=== PATIENT | female | born 1995 | race African-American/Black ===

== ENCOUNTER 2017-06-18 09:47 | Emergency (ER) | payer SELFPAY ==
[2017-06-18 10:01] VITALS: BP 118/67
--- NOTE | 2017-06-18 10:37 | ER Document Report ---
ED Skin Rash/Insect Bite/Abscs - General Chief Complaint: Cyst Stated Complaint: SKIN PROBLEM Time Seen by Provider: 06/18/17 10:21 Mode of Arrival: Ambulatory Information source: Patient Notes: 22-year-old female presents to ED complaining of cyst in the left axilla. She states that it is been there for at least 2 weeks. She states that the pain has started over the last couple days radiating to her left shoulder. There is no redness no warmth no fluctuation. Patient denies any fevers chills or night sweats. Patient states she has had cyst in the right axilla before. TRAVEL OUTSIDE OF THE [place] IN LAST 30 DAYS: No - HPI Patient complains to provider of: Tender/swollen area Onset: Other - 2 weeks Onset/Duration: Gradual Quality of pain: Achy Severity: Moderate Pain Level: 3 Skin Character: Abscess Quality of rash: Painful Identify cause: No Exacerbated by: Movement Relieved by: Denies Similar symptoms previously: Yes Recently seen / treated by doctor: No - Related Data Allergies/Adverse Reactions: No Known Allergies Allergy (Verified 06/18/17 10:01) Past Medical History - General Information source: Patient - Social History Smoking Status: Never Smoker Cigarette use (# per day): No Chew tobacco use (# tins/day): No Smoking Education Provided: No Frequency of alcohol use: None Drug Abuse: None Occupation: [employer] Lives with: Family Family History: Hypertension. denies: Arthritis, CAD, COPD, CVA, DM, Hyperlipidemia, Malignancy, Thyroid Disfunction Patient has suicidal ideation: No Patient has homicidal ideation: No - Past Medical History Cardiac Medical History: Reports: None Pulmonary Medical History: Reports: None EENT Medical History: Reports: None Neurological Medical History: Reports: None Endocrine Medical History: Reports: None Renal/ Medical History: Reports: None Malignancy Medical History: Reports: None GI Medical History: Reports: None Musculoskeltal Medical History: Reports None Skin Medical History: Reports Hx Cellulitis Psychiatric Medical History: Reports: None Traumatic Medical History: Reports: None Infectious Medical History: Reports: None Surgical Hx: Negative Past Surgical History: Reports: None - Immunizations Immunizations up to date: Yes Hx Diphtheria, Pertussis, Tetanus Vaccination: Yes Review of Systems - Review of Systems Constitutional: No symptoms reported EENT: No symptoms reported Cardiovascular: No symptoms reported Respiratory: No symptoms reported Gastrointestinal: No symptoms reported Genitourinary: No symptoms reported Female Genitourinary: No symptoms reported Musculoskeletal: No symptoms reported Skin: Other - Painful swollen area to the left axilla Hematologic/Lymphatic: No symptoms reported Neurological/Psychological: No symptoms reported -: Yes All other systems reviewed and negative Physical Exam - Vital signs Vitals: Temp Pulse Resp BP Pulse Ox 99.3 F 111 H 16 118/67 100 06/18/17 09:55 06/18/17 09:55 06/18/17 09:55 06/18/17 09:55 06/18/17 09:55 Interpretation: Normal - General General appearance: Appears well, Alert - HEENT Head: Normocephalic, Atraumatic Eyes: Normal Pupils: PERRL - Respiratory Respiratory status: No respiratory distress Chest status: Nontender Breath sounds: Normal Chest palpation: Normal - Cardiovascular Rhythm: Regular Heart sounds: Normal auscultation Murmur: No - Abdominal Inspection: Normal Distension: No distension Bowel sounds: Normal Tenderness: Nontender Organomegaly: No organomegaly - Back Back: Normal, Nontender - Extremities General upper extremity: Normal inspection, Nontender, Normal color, Normal ROM , Normal temperature General lower extremity: Normal inspection, Nontender, Normal color, Normal ROM , Normal temperature, Normal weight bearing. No: Wally's sign - Neurological Neuro grossly intact: Yes Cognition: Normal Orientation: AAOx4 [place] Coma Scale Eye Opening: Spontaneous [place] Coma Scale Verbal: Oriented [place] Coma Scale Motor: Obeys Commands [place] Coma Scale Total: 15 Speech: Normal Motor strength normal: LUE, RUE, LLE, RLE Sensory: Normal - Psychological Associated symptoms: Normal affect, Normal mood - Skin Skin Temperature: Warm Skin Moisture: Dry Skin Color: Normal. negative: Erythema, Ecchymosis Location of irregularity: Extremities - Left axilla Irregularity with: Swelling, Tenderness. negative: Warmth, Thickening, Inflammation Course - Re-evaluation Re-evalutation: 06/18/17 11:[address] Duran who assisted me and doing ultrasounds of the area there is a very minimal abscess to the upper aspect of the axilla not big enough to I& D. Patient was placed on Septra and Keflex and instructed to follow-up for any increase in symptoms. - Vital Signs Vital signs: Temp Pulse Resp BP Pulse Ox 99.3 F 111 H 16 118/67 100 06/18/17 09:55 06/18/17 09:55 06/18/17 09:55 06/18/17 09:55 06/18/17 09:55 Discharge - Discharge Clinical Impression: Cellulitis of left axilla Condition: Stable Disposition: HOME, SELF-CARE Instructions: Family Physicians / Practices Additional Instructions: CELLULITIS: You have an infection of your skin and underlying soft tissues called cellulitis. This is due to bacteria, which can enter through any break in the skin, or even through an irritated hair follicle. Untreated, cellulitis will usually worsen. Antibiotics are required. Usually, warm packs or warm soaks, and elevation of the infected area are recommended. You should start getting better within 24 to 36 hours. Most infections respond quickly to the right medication. Follow-up care is important, however, to check for abscess (boil) formation, unsuspected foreign body, or resistant infection. If you develop fever, chills, or if the area of infection is becoming rapidly more swollen or painful, call the doctor at once. Epsom Salt Soaks Soak the wound area in a container of warm epsom salt water. If you can't get the wound area into a bucket or allison, use a folded towel soaked in the epsom salt solution and apply to the area. Use clean hot tap water (about the temperature of a very warm bath), mixing in about one (1) teaspoon for every pint of water. Two gallon --> 16 teaspoons Epsom Salts One gallon --> 8 teaspoons Epsom Salts Two quarts --> 4 teaspoons Epsom Salts One quart --> 2 teaspoons Epsom Salts Soak the wound for about 20 minutes while gently moving it around in the water. Repeat this four (4) times a day. TRIMETHOPRIM-SULFA: You have been given a prescription for trimethoprim-sulfa (TMS, Septra, Bactrim). This is a combination antibiotic of the sulfa class, often used for urinary tract infections, middle ear infections, bronchitis, shigella intestinal infection, and Pneumocystis pneumonia. TMS is usually well-tolerated. Occasional side effects include nausea and decreased appetite. Septra is not recommended for infants less than two months of age. Do not take this medication if you have experienced severe side effects or allergy to sulfa medicine. You should stop this medicine at once and contact your physician if you develop any rash, joint pain, shortness of breath, bruising, or jaundice ( yellow color in the skin), or if you develop any other new or unusual symptoms. Cephalexin The antibiotic you've been prescribed is a member of the cephalosporin class. This type of antibiotic covers a wide variety of infections, including those of the skin, lungs, and urinary tract. It's useful for staph infections. This antibiotic is slightly similar to the penicillin family. In rare cases , a person who is allergic to penicillin will also be allergic to this medication. If you have had a severe allergic reaction to penicillin, and have not taken this antibiotic since that time, notify your doctor. Antibiotics which cover many germs ("broad spectrum" antibiotics) are more likely to cause diarrhea or "yeast" infections. Women prone to vaginal yeast problems may suffer an attack after taking this antibiotic. In infants, oral thrush (white spots "stuck" on the cheek) or yeast diaper rash may result. See your doctor if these problems occur. Call at once if you develop itching, hives , shortness of breath, or lightheadedness. Please return to the ED or your primary doctor for any increase in size discomfort or any redness to the area. There is a very small abscess in the left axilla at this time not large enough to I&D. We will start you on antibiotics and if it increases in size discomfort or redness please return. FOLLOW-UP CARE: If you have been referred to a physician for follow-up care, call the physician s office for an appointment as you were instructed or within the next two days. If you experience worsening or a significant change in your symptoms, notify the physician immediately or return to the Emergency Department at any time for re-evaluation. Prescriptions: Cephalexin Monohydrate [Keflex 500 mg Capsule] 500 mg PO QID #20 capsule Fluconazole [Diflucan 100 mg Tablet] 100 mg PO ONCE PRN #1 tablet PRN Reason: Sulfamethoxazole/Trimethoprim [Bactrim Ds Tablet] 1 each PO BID #20 tablet Forms: Return to Work
== END 2017-06-18 10:50 | disposition home or self-care (01) ==
LOC: ER 09:47
DX: L03.112 Cellulitis of left axilla (principal); L72.8 Other follicular cysts of the skin and subcutaneous tissue
CPT/HCPCS: 99282

== ENCOUNTER 2017-12-08 19:54 | Emergency (ER) | payer SELFPAY ==
[2017-12-08 20:04] VITALS: BP 109/55
[2017-12-08] MEDS ORDERED: LIDOCAINE 1% INJ-PF (10 MG/ML) 30 ML SDV INJ ONE (20:38)
--- NOTE | 2017-12-08 20:38 | ER Document Report ---
ED Wound - General Chief Complaint: Laceration Stated Complaint: LEFT LEG LACERATION Time Seen by Provider: 12/08/17 20:31 Notes: Patient hit her leg on a corner of a picture frame. Laceration obtained. No other injuries. Patient states that she has had a tetanus shot in the last 5 years. Bleeding was controlled. No other injuries. TRAVEL OUTSIDE OF THE [place] IN LAST 30 DAYS: No - HPI Patient complains to provider of: Laceration - Related Data Allergies/Adverse Reactions: No Known Allergies Allergy (Verified 06/18/17 10:01) Past Medical History - General Information source: Patient - Social History Smoking Status: Current Every Day Smoker Cigarette use (# per day): Yes Chew tobacco use (# tins/day): No Frequency of alcohol use: Social Drug Abuse: None Family History: Hypertension. denies: Arthritis, CAD, COPD, CVA, DM, Hyperlipidemia, Malignancy, Thyroid Disfunction Patient has suicidal ideation: No Patient has homicidal ideation: No Renal/ Medical History: Denies: Hx Peritoneal Dialysis Skin Medical History: Reports Hx Cellulitis - Immunizations Immunizations up to date: Yes Hx Diphtheria, Pertussis, Tetanus Vaccination: Yes Review of Systems - Review of Systems Constitutional: No symptoms reported Cardiovascular: No symptoms reported Respiratory: No symptoms reported Musculoskeletal: See HPI, Other - Laceration left lower extremity Skin: Other - left lower extremely laceration Physical Exam - Vital signs Vitals: Temp Pulse Resp BP Pulse Ox 98.0 F 95 18 109/55 L 97 12/08/17 20:03 12/08/17 20:03 12/08/17 20:03 12/08/17 20:03 12/08/17 20:03 Interpretation: Normal - Respiratory Respiratory status: No respiratory distress Chest status: Nontender Breath sounds: Normal Chest palpation: Normal - Cardiovascular Rhythm: Regular Heart sounds: Normal auscultation Murmur: No - Extremities General upper extremity: Normal inspection, Nontender, Normal color, Normal ROM , Normal temperature General lower extremity: Normal inspection, Nontender, Normal color, Normal ROM , Normal temperature, Normal weight bearing, Other - Patient has a 3 cm linear laceration to the left lower extremity lateral aspect of the fibula area. No foreign bodies noted. Incision intact.. No: Wally's sign - Skin Skin Temperature: Warm Skin Moisture: Dry Skin Color: Normal Course - Re-evaluation Re-evalutation: 12/08/17 21:33 Laceration repaired. No complications. 12/08/17 21:33 Patient is having a little bit of pain in the leg as well as some nausea. I have ordered some ibuprofen and Zofran. Laceration repair. No complications. Will DC at this time. - Vital Signs Vital signs: Temp Pulse Resp BP Pulse Ox 98.0 F 95 18 109/55 L 97 12/08/17 20:03 12/08/17 20:03 12/08/17 20:03 12/08/17 20:03 12/08/17 20:03 Procedures - Laceration/Wound Repair Left Lower Leg Wound length (cm): 3 Wound's Depth, Shape: Linear Laceration pre-procedure: Shur-Clens applied Anesthetic type: 1% Lidocaine Volume Anesthetic (mLs): 10 Wound explored: Clean Wound Repaired With: Sutures Suture Size/Type: 4:0, Prolene Number of Sutures: 7 Post-procedure NV exam normal: Yes Complications: No Discharge - Discharge Clinical Impression: Leg laceration Qualifiers: Encounter type: initial encounter Laterality: left Qualified Code(s): S81.812A - Laceration without foreign body, left lower leg, initial encounter Disposition: HOME, SELF-CARE Instructions: Laceration Care ([facility]) Additional Instructions: Please return in 10-14 days for suture removal. If you notice any redness, swelling, worsening pain or other concerns please return immediately Forms: Return to Work
[2017-12-08] MEDS ORDERED: ONDANSETRON 4 MG TAB.RAPDIS PO ONE (21:33)
[2017-12-08] MEDS ORDERED: IBUPROFEN 800 MG TABLET PO ONE (21:33)
== END 2017-12-08 21:55 | disposition home or self-care (01) ==
LOC: ER 19:54
PROC: 0HQLXZZ Repair Left Lower Leg Skin, External Approach (ICD-10-PCS; principal; 2017-12-08)
DX: S81.812A Laceration without foreign body, left lower leg, initial encounter (principal); R11.0 Nausea; W22.09XA Striking against other stationary object, initial encounter; F17.210 Nicotine dependence, cigarettes, uncomplicated
CPT/HCPCS: 99282; 12002; S0119; J3490

== ENCOUNTER 2020-07-16 18:42 | Emergency (ER) | payer BC, OTHER ==
--- NOTE | 2020-07-16 19:08 | ER Document Report ---
ED Medical Screen (RME) - General Chief Complaint: Abscess Stated Complaint: ABSCESS Time Seen by Provider: 07/16/20 19:03 Mode of Arrival: Ambulatory Information source: Patient Notes: 25-year-old female presented to ED for a cyst on her right labia. She states she has had cyst in the past but never on her labia. She has had the cyst for about 4 days. States she has been using hot rags but it has not helped the area. She states her last menstrual cycle was the weekend of the . Denies any history of MRSA. Is alert oriented respirations regular nonlabored speaking in full sentences walks with even steady gait. I have greeted and performed a rapid initial assessment of this patient. A comprehensive ED assessment and evaluation of the patient, analysis of test results and completion of medical decision making process will be conducted by an additional ED providers. TRAVEL OUTSIDE OF THE [place] IN LAST 30 DAYS: No - Related Data Allergies/Adverse Reactions: No Known Allergies Allergy (Verified 06/18/17 10:01) Past Medical History - General Information source: Patient Last Menstrual Period: The week of July 04 - Social History Cigarette use (# per day): Yes - 1 black and mild a day Frequency of alcohol use: Occasional Drug Abuse: None Lives with: Family Family history: Reviewed & Not Pertinent - Past Medical History Cardiac Medical History: Reports: None Pulmonary Medical History: Reports: None EENT Medical History: Reports: None Neurological Medical History: Reports: None Endocrine Medical History: Reports: None Renal/ Medical History: Reports: None Malignancy Medical History: Reports: None GI Medical History: Reports: None Musculoskeltal Medical History: Reports None Skin Medical History: Reports Hx Cellulitis Psychiatric Medical History: Reports: None Traumatic Medical History: Reports: None Infectious Medical History: Reports: None Surgical Hx: Negative Past Surgical History: Reports: None - Immunizations Immunizations up to date: No Hx Diphtheria, Pertussis, Tetanus Vaccination: No Physical Exam - Vital signs Vitals: Temp Pulse Resp BP Pulse Ox 98.1 F 109 H 16 131/71 H 100 07/16/20 18:45 07/16/20 18:45 07/16/20 18:45 07/16/20 18:45 07/16/20 18:45 Course - Vital Signs Vital signs: Temp Pulse Resp BP Pulse Ox 98.1 F 109 H 16 131/71 H 100 07/16/20 18:45 07/16/20 18:45 07/16/20 18:45 07/16/20 18:45 07/16/20 18:45
[2020-07-16] MEDS ORDERED: CEPHALEXIN 500 MG CAPSULE PO ONE (20:09)
[2020-07-16] MEDS ORDERED: SULFAMETHOXAZOLE/TRIMETHOPRIM 800-160 MG TABLET PO ONE (20:09)
[2020-07-16] MEDS ORDERED: HYDROCODONE/ACETAMINOPHEN 5-325 MG TABLET PO ONE (20:09)
[2020-07-16] MEDS ORDERED: LIDOCAINE 1% INJ-PF (10 MG/ML) 30 ML SDV INJ ONE (20:09)
--- NOTE | 2020-07-16 20:14 | ER Document Report ---
ED Skin Rash/Insect Bite/Abscs - General Chief Complaint: Abscess Stated Complaint: ABSCESS Time Seen by Provider: 07/16/20 19:03 Primary Care Provider: [facility] [Provider Group] - Follow up as needed Mode of Arrival: Ambulatory Information source: Patient Notes: Patient presents complaining of abscess to the right labia for the past week. Patient denies any drainage or fever. Patient denies any history of MRSA. TRAVEL OUTSIDE OF THE [place] IN LAST 30 DAYS: No - HPI Patient complains to provider of: Tender/swollen area Onset: Last week Onset/Duration: Worse Quality of pain: Sharp Pain Level: 5 Skin Character: Abscess, Tenderness Skin Temperature: Warm Quality of rash: Painful Exacerbated by: Movement Relieved by: Denies Similar symptoms previously: Yes Recently seen / treated by doctor: No - Related Data Allergies/Adverse Reactions: No Known Allergies Allergy (Verified 06/18/17 10:01) Past Medical History - General Information source: Patient Last Menstrual Period: The week of July 04 - Social History Smoking Status: Current Every Day Smoker Cigarette use (# per day): Yes Frequency of alcohol use: Occasional Drug Abuse: None Occupation: [employer] Lives with: Family Family History: Hypertension. denies: Arthritis, CAD, COPD, CVA, DM, Hyperlipidemia, Malignancy, Thyroid Disfunction - Medical History Medical History: Negative - Past Medical History Cardiac Medical History: Reports: None Pulmonary Medical History: Reports: None EENT Medical History: Reports: None Neurological Medical History: Reports: None Endocrine Medical History: Reports: None Renal/ Medical History: Reports: None Malignancy Medical History: Reports: None GI Medical History: Reports: None Musculoskeletal Medical History: Reports None Skin Medical History: Reports Hx Cellulitis Psychiatric Medical History: Reports: None Traumatic Medical History: Reports: None Infectious Medical History: Reports: None Surgical Hx: Negative Past Surgical History: Reports: None - Immunizations Immunizations up to date: No Hx Diphtheria, Pertussis, Tetanus Vaccination: No Review of Systems - Review of Systems Constitutional: No symptoms reported. denies: Fever EENT: No symptoms reported Cardiovascular: No symptoms reported Respiratory: No symptoms reported Gastrointestinal: No symptoms reported. denies: Vomiting Genitourinary: No symptoms reported Female Genitourinary: No symptoms reported Musculoskeletal: No symptoms reported Skin: Other - Abscess to right labia Hematologic/Lymphatic: No symptoms reported Neurological/Psychological: No symptoms reported Physical Exam - Vital signs Vitals: Temp Pulse Resp BP Pulse Ox 98.1 F 109 H 16 131/71 H 100 07/16/20 18:45 07/16/20 18:45 07/16/20 18:45 07/16/20 18:45 07/16/20 18:45 - General General appearance: Appears well, Alert In distress: None - HEENT Head: Normocephalic, Atraumatic Eyes: Normal Conjunctiva: Normal Neck: Normal, Supple - Respiratory Respiratory status: No respiratory distress Chest status: Nontender Breath sounds: Normal. No: Rales, Rhonchi, Stridor, Wheezing Chest palpation: Normal - Cardiovascular Rhythm: Regular Heart sounds: S1 appreciated, S2 appreciated - Abdominal Inspection: Normal Distension: No distension Tenderness: Nontender - Genitourinary External exam: Other - abscess to the right labia - Back Back: Normal, Nontender - Extremities General upper extremity: Normal inspection, Normal strength General lower extremity: Normal inspection, Normal strength - Neurological Neuro grossly intact: Yes Cognition: Normal [place] Coma Scale Eye Opening: Spontaneous [place] Coma Scale Verbal: Oriented [place] Coma Scale Motor: Obeys Commands [place] Coma Scale Total: 15 - Psychological Associated symptoms: Normal affect, Normal mood - Skin Skin Temperature: Warm Skin Moisture: Dry Skin Color: Normal Skin irregularity: Abscess - Right labia Irregularity with: Swelling, Tenderness, Inflammation Course - Re-evaluation Re-evalutation: 07/16/20 Patient with moderate amount of drainage after incision and drainage procedure. Patient tolerated procedure well. Patient did appear more comfortable after procedure was performed. Culture has been obtained. Discussed with patient worsening signs or symptoms that she should return immediately for. - Vital Signs Vital signs: Temp Pulse Resp BP Pulse Ox 98.3 F 84 18 141/66 H 100 07/16/20 21:51 07/16/20 21:51 07/16/20 21:51 07/16/20 21:51 07/16/20 21:51 Procedures - Incision and Drainage Right Labia Type: Simple Anesthetic type: 1% Lidocaine Blade size: 11 I&D procedure: Betadine prep applied Incision Method: Incision made by scalpel Amount/type of drainage: Moderate amount of purulent drainage Female anatomy: 1 - Pointing abscess, 2.5 cm diameter Discharge - Discharge Clinical Impression: Labial abscess, Encounter for incision and drainage procedure Condition: Stable Disposition: HOME, SELF-CARE Instructions: Abscess ([facility]), Cephalexin ([facility]), Oral Narcotic Medication ([facility]), Post Incision and Drainage, Trimethoprim-Sulfa ([facility]) Additional Instructions: Return immediately for any new or worsening symptoms Followup with your primary care provider, call tomorrow to make a followup appointment Wound culture is pending, we will call if you need any different treatment Prescriptions: Sulfamethoxazole/Trimethoprim [Bactrim Ds Tablet] 1 each PO BID #20 tablet Cephalexin Monohydrate [Keflex 500 mg Capsule] 500 mg PO Q6H 5 Days #20 capsule Hydrocodone/Acetaminophen [[place] 5-325 mg Tablet] 1 tab PO Q6 PRN #8 tablet PRN Reason: Referrals: [facility] [Provider Group] - Follow up as needed
[2020-07-16 21:52] VITALS: BP 141/66
== END 2020-07-16 21:52 | disposition home or self-care (01) ==
LOC: ER 18:42
DX: N76.4 Abscess of vulva (principal); F17.210 Nicotine dependence, cigarettes, uncomplicated
CPT/HCPCS: 99283; 87070; 87205; 87077; 56405; J3490; 87075; 87186

== ENCOUNTER 2020-07-27 07:35 | Emergency (ER) | payer BC, OTHER ==
[2020-07-27] MEDS ORDERED: ACETAMINOPHEN 325 MG TABLET PO ONE (08:24)
[2020-07-27] MEDS ORDERED: DEXAMETHASONE SOD PHOS INJ 10 MG/1 ML VIAL IM ONE (08:32)
--- NOTE | 2020-07-27 08:32 | ER Document Report ---
HPI - HPI Time Seen by Provider: 07/27/20 08:29 Pain Level: 4 Context: Patient is a 25-year-old female who presents to the emergency department with a chief complaint of a sore throat. Patient denies any contact with anybody who tested positive for COVID-19. Patient has a history of strep throats in the past. Patient states that she has white spots on her tonsils. Patient recently had an abscess drained and is currently on Bactrim and Keflex. - CONSTITUTIONAL Constitutional: REPORTS: Fever - 102.7 here in the emergency department. DENIES: Chills - EENT EENT: REPORTS: Sore Throat. DENIES: Ear Pain, Nasal Drainage-Clear, Nasal Drainage-Purulent, Congestion, Eye problems - NEURO Neurology: DENIES: Headache, Weakness - RESPIRATORY Respiratory: DENIES: Trouble Breathing, Coughing - GASTROINTESTINAL Gastrointestinal: DENIES: Abdominal Pain, Nausea, Patient vomiting - REPRODUCTIVE LMP: 07/04/20 Reproductive: DENIES: : - DERM Skin Color: Normal Skin Problems: None Past Medical History - Social History Smoking Status: Never Smoker Chew tobacco use (# tins/day): No Frequency of alcohol use: None Drug Abuse: None Family History: Hypertension. denies: Arthritis, CAD, COPD, CVA, DM, Hyperlipidemia, Malignancy, Thyroid Disfunction Skin Medical History: Reports Hx Cellulitis - Immunizations Immunizations up to date: No Hx Diphtheria, Pertussis, Tetanus Vaccination: No Vertical Provider Document - CONSTITUTIONAL Agree With Documented VS: Yes Exam Limitations: No Limitations General Appearance: No Apparent Distress - INFECTION CONTROL TRAVEL OUTSIDE OF THE [place] IN LAST 30 DAYS: No - HEENT HEENT: Atraumatic, Normocephalic, PERRLA, Pharyngeal Exudate - NECK Neck: Normal Inspection, Lymphadenopathy-Left, Lymphadenopathy-Right - RESPIRATORY Respiratory: No Respiratory Distress - CARDIOVASCULAR Pulses: Normal: Radial - MUSCULOSKELETAL/EXTREMETIES Musculoskeletal/Extremeties: FROM - NEURO Level of Consciousness: Awake, Alert, Appropriate Motor/Sensory: No Motor Deficit, No Sensory Deficit - DERM Integumentary: Warm, Dry, No Rash Course - Re-evaluation Re-evalutation: 07/27/20 09:59 Patient's rapid strep test is negative. Although it is negative, will empirically treat her, as she has exudative pharyngitis. Uvula is midline. No evidence of a peritonsillar abscess. Patient will receive penicillin here in the emergency department. Follow-up precautions were given. Verbal discharge instructions were given to the patient. They verbalized understanding. They are stable for discharge. - Vital Signs Vital signs: Temp Pulse Resp BP Pulse Ox 102.7 F H 119 H 18 123/73 98 07/27/20 07:41 07/27/20 07:41 07/27/20 07:41 07/27/20 07:41 07/27/20 07:41 Discharge - Discharge Clinical Impression: Exudative pharyngitis Condition: Stable Disposition: HOME, SELF-CARE Instructions: Penicillin V K ([facility]), Sore Throat ([facility]) Additional Instructions: You have been diagnosed with strep throat based on your physical exam. You have been treated with a dose of penicillin here in the emergency department and do not need any additional antibiotics. You have also been given a dose of steroids to help with your throat discomfort. Please continue to take ibuprofen 600 mg every 6 hours or Tylenol 1000 mg every 6 hours as needed for throat discomfort. You can also gargle with salt water. Continue to drink plenty of fluids. Follow-up with your primary care doctor in the next several days. Return if you become unable to swallow, have difficulty breathing, pass out, have persistent vomiting that prevents you from being able to tolerate fluids, or have any other symptoms that are concerning to you.
[2020-07-27] MEDS ORDERED: DEXAMETHASONE 4 MG TABLET PO ONE (08:34)
[2020-07-27] MEDS ORDERED: PENICILLIN G BENZATHINE 1.2 MILLION UNIT/2 ML DISP.SYRIN IM ONE (09:59)
[2020-07-27 10:02] VITALS: BP 114/76
== END 2020-07-27 10:39 | disposition home or self-care (01) ==
LOC: ER 07:35
DX: J02.9 Acute pharyngitis, unspecified (principal); R50.9 Fever, unspecified
CPT/HCPCS: 99284; 96372; 87070; 87880; J8540; J0561